=== PATIENT | female | born 1980 | race Hispanic/Latino ===

== ENCOUNTER 2017-05-04 23:25 | Emergency (ER) | payer SELFPAY ==
[2017-05-05] MEDS ORDERED: DEXAMETHASONE SOD PHOSPHATE 10MG/ML 1ML VIAL ONE (00:22)
== END 2017-05-05 00:41 | disposition home or self-care (01) ==
LOC: EDH 23:25
DX: M72.2 Plantar fascial fibromatosis (principal)
CPT/HCPCS: 96372; 99283; J1100

== ENCOUNTER 2017-05-21 20:18 | Emergency (ER) | payer SELFPAY ==
[2017-05-21 20:34] LABS: APPEARANCE,URINE Cloudy (CLEAR); BILIRUBIN,URINE Negative (NEGATIVE); COLOR,URINE Yellow (YELLOW); GLUCOSE, URINE (UA) Negative (NEGATIVE); KETONES,URINE Negative (NEGATIVE); LEUKOCYTE ESTERASE ,URINE Negative (NEGATIVE); NITRATE,URINE Negative (NEGATIVE); OCCULT BLOOD,URINE Negative (NEGATIVE); PH,URINE >=9.0 (5.0-8.0); PROTEIN,URINE Negative (NEGATIVE); UROBILINOGEN,URINE 0.2 mg/dL (0.2-1.0)
[2017-05-21 21:00] LABS: BASOPHILS % (AUTO) 0.6 % (0.0-5.0); EOSINOPHILS % (AUTO) 0.7 % (0.0-8.0); HEMATOCRIT 37.9 % (36-48); MEAN CORPUSCULAR HEMOGLOBIN 31.8 pg (27.0-33.0); MEAN CORPUSCULAR HGB CONC 34.9 g/dL (32.0-36.0); MEAN CORPUSCULAR VOLUME 90.9 fL (79-99); MONOCYTES % (AUTO) 6.2 % (3.0-13.0); NEUTROPHILS % (AUTO) 73.5 % (40.0-77.0); NUCLEATED RED BLOOD CELLS 0.1 % (0.0-0.19); PLATELET COUNT (AUTO) 230 K/uL (130-400); RED BLOOD CELL COUNT(AUTO) 4.17 MIL/uL (4.00-5.50); RED CELL DISTRIBUTION WIDTH 13.1 % (11.0-15.5); WHITE BLOOD COUNT (AUTO) 12.5 K/uL (4.8-10.8)
[2017-05-21] MEDS ORDERED: KETOROLAC TROMETHAMINE 30MG/ML ONE (21:02)
[2017-05-21 21:10] LABS: POTASSIUM 4.1 mmol/L (3.5-5.1)
[2017-05-21 21:15] LABS: ALBUMIN 3.2 g/dL (3.5-5.0); BILIRUBIN,TOTAL 0.8 mg/dL (0.2-1.0); TOTAL PROTEIN, SERUM 6.9 g/dL (6.0-8.3)
[2017-05-21 21:38] LABS: AMORPHOUS SEDIMENT,UR Moderate /LPF (None Seen); BACTERIA,URINE Few /HPF (None Seen); RBC,URINE 0-1 /HPF (0-1); SQUAMOUS EPITHELIAL CELL,UR Few /LPF (0-2); WBC,URINE 0-1 /HPF (0-1)
[2017-05-21] MEDS ORDERED: LEVOFLOXACIN 500 MG TABLET ONE (22:37)
[2017-05-21] MEDS ORDERED: METRONIDAZOLE 500 MG TABLET ONE (22:37)
== END 2017-05-21 23:04 | disposition home or self-care (01) ==
LOC: EDH 20:18
DX: K57.32 Diverticulitis of large intestine without perforation or abscess without bleeding (principal)
CPT/HCPCS: 36415; 74176; 80053; 81001; 81025; 85025; 96372; 99285; J1885

== ENCOUNTER 2017-06-27 18:11 | Emergency (ER) | payer SELFPAY ==
[2017-06-27 18:43] LABS: BASOPHILS % (AUTO) 0.6 % (0.0-5.0); EOSINOPHILS % (AUTO) 1.7 % (0.0-8.0); HEMATOCRIT 46.1 % (36-48); LYMPHOCYTES % (AUTO) 24.1 % (21.0-51.0); MEAN CORPUSCULAR HEMOGLOBIN 30.7 pg (27.0-33.0); MEAN CORPUSCULAR HGB CONC 33.8 g/dL (32.0-36.0); MEAN CORPUSCULAR VOLUME 90.7 fL (79-99); MONOCYTES % (AUTO) 5.1 % (3.0-13.0); NEUTROPHILS % (AUTO) 68.5 % (40.0-77.0); PLATELET COUNT (AUTO) 267 K/uL (130-400); RED BLOOD CELL COUNT(AUTO) 5.08 MIL/uL (4.00-5.50)
[2017-06-27] MEDS ORDERED: ASPIRIN 325 MG TABLET ONE (18:44)
[2017-06-27 19:00] LABS: CREATININE 0.9 mg/dL (0.5-1.5); POTASSIUM 3.6 mmol/L (3.5-5.1)
[2017-06-27] MEDS ORDERED: DIPHENHYDRAMINE HCL 25 MG CAPSULE ONE (19:09)
[2017-06-27 19:15] LABS: BILIRUBIN,TOTAL 0.4 mg/dL (0.2-1.0); CREATINE KINASE MB 0.6 ng/mL (0.5-3.6); TOTAL PROTEIN, SERUM 6.3 g/dL (6.0-8.3)
[2017-06-27 19:32] LABS: INR 0.94 (0.85-1.15); PARTIAL THROMBOPLASTIN TIME 26.6 SEC (26.3-35.5); PROTHROMBIN TIME 9.9 SEC (9.6-11.6)
== END 2017-06-27 21:51 | disposition home or self-care (01) ==
LOC: EDH 18:11
DX: F41.1 Generalized anxiety disorder (principal); F45.8 Other somatoform disorders; R07.89 Other chest pain
CPT/HCPCS: 36415; 71045; 80053; 82550; 82553; 83874; 83880; 84484 ×2; 84703; 85025; 85610; 85730; 93005 ×2; 96374; 99285; Q0163

== ENCOUNTER 2018-02-10 18:41 | Emergency (ER) | payer OTHER ==
[2018-02-10] MEDS ORDERED: ASPIRIN 325 MG TABLET ONE (19:36)
[2018-02-10 19:37] LABS: BASOPHILS % (AUTO) 0.7 % (0.0-5.0); EOSINOPHILS % (AUTO) 1.8 % (0.0-8.0); HEMATOCRIT 37.3 % (36-48); LYMPHOCYTES % (AUTO) 33.5 % (21.0-51.0); MEAN CORPUSCULAR HEMOGLOBIN 30.8 pg (27.0-33.0); MEAN CORPUSCULAR VOLUME 90.5 fL (79-99); MONOCYTES % (AUTO) 7.6 % (3.0-13.0); NEUTROPHILS % (AUTO) 56.4 % (40.0-77.0); PLATELET COUNT (AUTO) 222 K/uL (130-400); RED BLOOD CELL COUNT(AUTO) 4.12 MIL/uL (4.00-5.50); WHITE BLOOD COUNT (AUTO) 8.6 K/uL (4.8-10.8)
[2018-02-10 19:49] LABS: INR 0.97 (0.85-1.15); PARTIAL THROMBOPLASTIN TIME 29.6 SEC (26.3-35.5); PROTHROMBIN TIME 10.2 SEC (9.6-11.6)
[2018-02-10 19:59] LABS: ALBUMIN 3.3 g/dL (3.5-5.0); BILIRUBIN,TOTAL 0.4 mg/dL (0.2-1.0); TOTAL PROTEIN, SERUM 7.2 g/dL (6.0-8.3)
== END 2018-02-10 20:46 | disposition home or self-care (01) ==
LOC: EDH 18:41
DX: R07.89 Other chest pain (principal); R06.02 Shortness of breath; K29.70 Gastritis, unspecified, without bleeding; Z90.49 Acquired absence of other specified parts of digestive tract; Z90.710 Acquired absence of both cervix and uterus; Z98.890 Other specified postprocedural states
CPT/HCPCS: 36415; 71045; 80053; 81025; 82550; 83874; 84484; 85025; 85378; 85610; 85730; 93005; 94761

== ENCOUNTER 2018-09-15 19:28 | Inpatient (IN) | payer SELFPAY ==
[~2018-09-15] VITALS: Ht 167.6 cm; Wt 114.3 kg
[2018-09-15 19:58] LABS: BILIRUBIN,URINE Negative (NEGATIVE); COLOR,URINE Yellow (YELLOW); GLUCOSE, URINE (UA) Negative (NEGATIVE); KETONES,URINE Negative (NEGATIVE); LEUKOCYTE ESTERASE ,URINE Negative (NEGATIVE); NITRATE,URINE Negative (NEGATIVE); OCCULT BLOOD,URINE Large (NEGATIVE); PH,URINE 5.5 (5.0-8.0); PROTEIN,URINE Trace mg/dL (NEGATIVE)
[2018-09-15 20:00] LABS: APPEARANCE,URINE SLIGHTLY CLOUDY (CLEAR)
[2018-09-15 20:08] LABS: BASOPHILS % (AUTO) 0.4 % (0.0-5.0); EOSINOPHILS % (AUTO) 0.9 % (0.0-8.0); HEMATOCRIT 38.8 % (36-48); LYMPHOCYTES % (AUTO) 30.3 % (21.0-51.0); MEAN CORPUSCULAR HGB CONC 34.4 g/dL (32.0-36.0); MEAN CORPUSCULAR VOLUME 90.2 fL (79-99); MONOCYTES % (AUTO) 6.5 % (3.0-13.0); NEUTROPHILS % (AUTO) 61.9 % (40.0-77.0); PLATELET COUNT (AUTO) 211 K/uL (130-400); RED CELL DISTRIBUTION WIDTH 13.1 % (11.0-15.5); WHITE BLOOD COUNT (AUTO) 11.7 K/uL (4.8-10.8)
[2018-09-15] MEDS ORDERED: MORPHINE SULFATE 2 MG/ML 1ML SYG ONE (20:12)
[2018-09-15] MEDS ORDERED: ONDANSETRON HCL 4 MG/2 ML VIAL ONE (20:12)
[2018-09-15 20:13] LABS: BACTERIA,URINE Few /HPF (None Seen)
[2018-09-15 20:14] LABS: MUCUS,URINE Few LPF (None Seen); SQUAMOUS EPITHELIAL CELL,UR Moderate /HPF (0-2)
[2018-09-15 20:19] LABS: POTASSIUM 3.4 mmol/L (3.5-5.1)
[2018-09-15 20:24] LABS: ALBUMIN 3.5 g/dL (3.5-5.0); BILIRUBIN,TOTAL 0.4 mg/dL (0.2-1.0); TOTAL PROTEIN, SERUM 7.5 g/dL (6.0-8.3)
[2018-09-15] MEDS ORDERED: KETOROLAC TROMETHAMINE 30MG/ML ONE (20:28)
[2018-09-15] MEDS ORDERED: LEVOFLOXACIN 500 MG/D5W 100 ML 100 ML ONE (21:31)
[2018-09-15] MEDS ORDERED: METRONIDAZOLE 500MG/100ML BAG 100 ML ONE (21:31)
[2018-09-15] MEDS ORDERED: MORPHINE SULFATE 4 MG/1ML SYG ONE (21:33)
[2018-09-15] MEDS ORDERED: DIAZEPAM 5 MG TABLET ONE (23:06)
[2018-09-15] MEDS ORDERED: HYDROCODONE/ACETAMINOPHEN 5/325 MG TAB PO PRN (23:30)
[2018-09-15] MEDS ORDERED: DIAZEPAM 5 MG TABLET PO PRN (23:30)
[2018-09-15] MEDS ORDERED: ACETAMINOPHEN 325 MG TAB PO PRN ×2 (23:30)
[2018-09-15] MEDS ORDERED: ONDANSETRON HCL 4 MG/2 ML VIAL IV PRN (23:30)
[2018-09-15 23:54] VITALS: BP 126/65
[2018-09-16 03:47] VITALS: BP 124/60
[2018-09-16] MEDS: SODIUM CHLORIDE 0.9% 1000ML 1,000 ML IV SCH ×4 (05:56→20:35)
[2018-09-16 08:00] VITALS: BP 111/71
[2018-09-16] MEDS ORDERED: POTASSIUM CHLORIDE 20 MEQ ERTAB PO PRN (09:15)
[2018-09-16] MEDS ORDERED: LIDOCAINE HCL-MPF 1% 2ML VIAL IVP PRN (09:15)
[2018-09-16] MEDS ORDERED: POTASSIUM CHLORIDE 10% ELIXIR 20 MEQ/15 ML UDCUP PO PRN (09:15)
[2018-09-16] MEDS ORDERED: POTASSIUM CHLORIDE 10MEQ/100ML 100 ML IV PRN (09:15)
[2018-09-16 09:57] LABS: BASOPHILS % (AUTO) 0.1 % (0.0-5.0); HEMATOCRIT 36.8 % (36-48); LYMPHOCYTES % (AUTO) 28.2 % (21.0-51.0); MEAN CORPUSCULAR HEMOGLOBIN 30.1 pg (27.0-33.0); MEAN CORPUSCULAR HGB CONC 33.2 g/dL (32.0-36.0); MEAN CORPUSCULAR VOLUME 90.5 fL (79-99); MONOCYTES % (AUTO) 5.5 % (3.0-13.0); NEUTROPHILS % (AUTO) 65.2 % (40.0-77.0); PLATELET COUNT (AUTO) 191 K/uL (130-400); RED BLOOD CELL COUNT(AUTO) 4.06 MIL/uL (4.00-5.50); WHITE BLOOD COUNT (AUTO) 7.5 K/uL (4.8-10.8)
[2018-09-16 10:06] LABS: POTASSIUM 4.2 mmol/L (3.5-5.1)
[2018-09-16] MEDS: FAMOTIDINE/PF 20 MG/2 ML VIAL IV SCH ×2 (10:18→20:34)
--- NOTE | 2018-09-16 10:18 | NUR ---
Yessica Clements met with pt who states she lives alone. father [place] [address] [phone]. Pt works at [employer], is independent, no DME or services. Pt denies dc needs and plan is home at dc Addendum: 09/16/18 at 1020 by CECILY WONG Amended: Links added.
[2018-09-16] MEDS: ENOXAPARIN SODIUM 40 MG/0.4 ML SYRINGE SQ SCH ×2 (10:19→20:34)
[2018-09-16 12:00] VITALS: BP 133/70
[2018-09-16] MEDS: ZOSYN 3.375GM+NS 50ML 50 ML IV SCH ×2 (12:27→20:34)
--- NOTE | 2018-09-16 15:47 | NUR ---
RD Notification Pt NPO x1 day at time of screen/visit. Pt with reports of hunger; Rec to advance diet as tolerated to Soft diet. Diet currently advanced to Full Liquids. Pt dislike Ensure. Pt LBM 09/15/18. Pt monitored labs: Glu 106, Ca 8.4, Alb 3.5. RD provided Diverticulitis diet education. RD to continue to monitor. Please notify RD as additional nutrition concerns arise. Thank you. Addendum: 09/16/18 at [address] RD Amended: Links added.
--- NOTE | 2018-09-16 15:53 | NUR ---
Diet Education ROBERTH provided Diverticulitis Diet Education. ROBERTH reviewed reference materials and handouts with Pt. Pt verbalized understanding, denied need for education, however still receptive to educational materials. ROBERTH discussed problematic foods with Pt. Pt to modify diet as necessary. ROBERTH encouraged Pt to notify as questions and concerns arise. Addendum: 09/16/18 at [address] RD Amended: Links added.
[2018-09-16 16:00] VITALS: BP 103/49
[2018-09-16 19:52] VITALS: BP 103/49
[2018-09-16 23:43] VITALS: BP 124/65
[2018-09-17] MEDS: ZOSYN 3.375GM+NS 50ML 50 ML IV SCH ×2 (05:00→12:30)
[2018-09-17 07:00] VITALS: BP 116/54
[2018-09-17] MEDS: SODIUM CHLORIDE 0.9% 1000ML 1,000 ML IV SCH (07:45)
[2018-09-17] MEDS ORDERED: METR-172 PO (09:02)
[2018-09-17] MEDS ORDERED: LEVO500T2 PO (09:02)
[2018-09-17] MEDS: FAMOTIDINE/PF 20 MG/2 ML VIAL IV SCH (09:44)
[2018-09-17] MEDS: ENOXAPARIN SODIUM 40 MG/0.4 ML SYRINGE SQ SCH (09:44)
[2018-09-17 11:00] VITALS: BP 99/51
== END 2018-09-17 15:21 | disposition home or self-care (01) | DRG 392 ==
LOC: EDH 19:28 → EDHIP 19:29 → 3BH 23:39
PROVIDERS: ADMIT Internal Medicine; ATTEND Internal Medicine
DX: K57.32 Diverticulitis of large intestine without perforation or abscess without bleeding (principal); Z68.41 Body mass index [BMI] 40.0-44.9, adult; E66.01 Morbid (severe) obesity due to excess calories; E87.6 Hypokalemia; K42.9 Umbilical hernia without obstruction or gangrene; K76.0 Fatty (change of) liver, not elsewhere classified; F41.9 Anxiety disorder, unspecified; Z90.710 Acquired absence of both cervix and uterus
CPT/HCPCS: 36415; 74176; 76770; 80048; 80053; 81001; 81025; 83690; 85025; G0378; J1650; J1885; J1956; J2270; J2405; J2543; J3490; J7030

== ENCOUNTER 2019-05-18 02:59 | Emergency (ER) | payer OTHER ==
[~2019-05-18 02:59] MED LIST: LEVO500T2 PO; METR-172 PO
[2019-05-18] MEDS ORDERED: ONDANSETRON HCL 4 MG/2 ML VIAL ONE (03:36)
[2019-05-18] MEDS ORDERED: MORPHINE SULFATE 4 MG/1ML SYG ONE (03:37)
[2019-05-18 03:39] LABS: BASOPHILS % (AUTO) 0.4 % (0.0-5.0); EOSINOPHILS % (AUTO) 1.5 % (0.0-8.0); HEMATOCRIT 42.3 % (36-48); LYMPHOCYTES % (AUTO) 14.9 % (21.0-51.0); MEAN CORPUSCULAR HEMOGLOBIN 30.5 pg (27.0-33.0); MEAN CORPUSCULAR HGB CONC 33.8 g/dL (32.0-36.0); MEAN CORPUSCULAR VOLUME 90.2 fL (79-99); MONOCYTES % (AUTO) 6.4 % (3.0-13.0); NEUTROPHILS % (AUTO) 76.5 % (40.0-77.0); PLATELET COUNT (AUTO) 238 K/uL (130-400); RED BLOOD CELL COUNT(AUTO) 4.69 MIL/uL (4.00-5.50); RED CELL DISTRIBUTION WIDTH 12.8 % (11.0-15.5); WHITE BLOOD COUNT (AUTO) 11.5 K/uL (4.8-10.8)
[2019-05-18 03:50] LABS: CREATININE 0.9 mg/dL (0.5-1.5); POTASSIUM 3.7 mmol/L (3.5-5.1)
[2019-05-18 03:50] LABS: APPEARANCE,URINE Clear (CLEAR); BILIRUBIN,URINE Negative (NEGATIVE); COLOR,URINE Yellow (YELLOW); GLUCOSE, URINE (UA) Negative (NEGATIVE); KETONES,URINE Negative (NEGATIVE); LEUKOCYTE ESTERASE ,URINE Small (NEGATIVE); NITRATE,URINE Negative (NEGATIVE); OCCULT BLOOD,URINE Negative (NEGATIVE); PH,URINE 8.5 (5.0-8.0); PROTEIN,URINE Negative (NEGATIVE)
[2019-05-18 03:54] LABS: ALBUMIN 3.3 g/dL (3.5-5.0); BILIRUBIN,TOTAL 0.7 mg/dL (0.2-1.0); TOTAL PROTEIN, SERUM 7.3 g/dL (6.0-8.3)
[2019-05-18 03:55] LABS: HCG,QUAL RESULT NEGATIVE (NEGATIVE)
[2019-05-18 04:30] LABS: BACTERIA,URINE Few /HPF (None Seen); RBC,URINE None Seen /HPF (0-1); SQUAMOUS EPITHELIAL CELL,UR Moderate /HPF (0-2)
== END 2019-05-18 05:48 | disposition home or self-care (01) ==
LOC: EDH 02:59
DX: A08.4 Viral intestinal infection, unspecified (principal); F41.9 Anxiety disorder, unspecified; Z91.018 Allergy to other foods
CPT/HCPCS: 36415; 74176; 80053; 81001; 81025; 82150; 83690; 84484; 85025; 93005; 96374; 96375; 99285; J2270; J2405

== ENCOUNTER 2021-12-24 18:33 | Emergency (ER) | payer OTHER ==
[~2021-12-24] VITALS: Ht 167.6 cm; Wt 113.4 kg
[2021-12-24] MEDS ORDERED: DIPH25 PO (19:21)
[2021-12-24] MEDS ORDERED: HYDR28.32 TP (19:21)
[2021-12-24] MEDS ORDERED: DiphenhydrAMINE HCL 50 MG/ML VIAL IM ONE (19:30)
[2021-12-24] MEDS ORDERED: DEXAMETHASONE SOD PHOSPHATE 4 MG/ML 1ML VIAL IM ONE (19:30)
[2021-12-24 20:27] VITALS: BP 141/73
== END 2021-12-24 20:35 | disposition home or self-care (01) ==
LOC: EDH 18:33
DX: L25.9 Unspecified contact dermatitis, unspecified cause (principal); Z79.52 Long term (current) use of systemic steroids; Z90.49 Acquired absence of other specified parts of digestive tract
CPT/HCPCS: 99284; 96372 ×2; J1100; J1200

== ENCOUNTER 2022-01-24 09:10 | Emergency (ER) | payer OTHER ==
[~2022-01-24] VITALS: Ht 167.6 cm; Wt 98.0 kg
[~2022-01-24 09:10] MED LIST changes: +DIPH25 PO; +HYDR28.32 TP
[2022-01-24 10:40] LABS: ALBUMIN 3.4 g/dL (3.5-5.0); CREATININE 0.9 mg/dL (0.5-1.5); POTASSIUM 3.9 mmol/L (3.5-5.1); TOTAL PROTEIN, SERUM 7.6 g/dL (6.0-8.3)
[2022-01-24 10:44] LABS: BASOPHILS % (AUTO) 0.8 % (0.0-5.0); HEMATOCRIT 40.8 % (36-48); MEAN CORPUSCULAR HEMOGLOBIN 29.6 pg (27.0-33.0); MEAN CORPUSCULAR HGB CONC 32.8 g/dL (32.0-36.0); MEAN CORPUSCULAR VOLUME 90.3 fL (79-99); NEUTROPHILS % (AUTO) 65.1 % (40.0-77.0); PLATELET COUNT (AUTO) 242 K/uL (130-400); RED BLOOD CELL COUNT(AUTO) 4.52 MIL/uL (4.00-5.50); RED CELL DISTRIBUTION WIDTH 12.6 % (11.0-15.5); WHITE BLOOD COUNT (AUTO) 8.3 K/uL (4.8-10.8)
[2022-01-24] MEDS ORDERED: MORPHINE 2 MG SYG ONE (11:35)
[2022-01-24 11:41] LABS: APPEARANCE,URINE CLEAR (CLEAR); BILIRUBIN,URINE NEGATIVE (NEGATIVE); COLOR,URINE YELLOW (YELLOW); GLUCOSE, URINE (UA) NEGATIVE (NEGATIVE); KETONES,URINE NEGATIVE (NEGATIVE); LEUKOCYTE ESTERASE ,URINE NEGATIVE Leu/uL (NEGATIVE); NITRATE,URINE NEGATIVE (NEGATIVE); OCCULT BLOOD,URINE NEGATIVE (NEGATIVE); PH,URINE 6.5 (5.0-8.0); PROTEIN,URINE NEGATIVE (NEGATIVE); UROBILINOGEN,URINE 0.2 mg/dL (0.2-1.0)
[2022-01-24] MEDS ORDERED: MORPHINE 2 MG SYG IVP SCH (12:00)
[2022-01-24] MEDS ORDERED: ASPIRIN 81MG CHEW TAB PO SCH (13:00)
[2022-01-24] MEDS ORDERED: OMEP20TA2 PO (14:20)
[2022-01-24] MEDS ORDERED: IBUP-1493 PO (14:20)
[2022-01-24 15:39] VITALS: BP 129/63
== END 2022-01-24 15:50 | disposition home or self-care (01) ==
LOC: EDH 09:10
DX: R07.89 Other chest pain (principal); Z90.49 Acquired absence of other specified parts of digestive tract; Z98.890 Other specified postprocedural states; Z79.899 Other long term (current) drug therapy; Z91.018 Allergy to other foods
CPT/HCPCS: 36415; 71045; 80053; 81003; 83880; 84484; 85025; 85378; 93005; 96374

== ENCOUNTER 2022-04-30 05:53 | Emergency (ER) | payer SELFPAY ==
[~2022-04-30] VITALS: Ht 167.6 cm; Wt 120.2 kg
[~2022-04-30 05:53] MED LIST changes: +DIPH-1242 PO; -DIPH25 PO; +IBUP-1493 PO; +OMEP20TA2 PO
[2022-04-30] MEDS ORDERED: LACTATED RINGERS 1000ML 1,000 ML IV ONE (06:30)
[2022-04-30 06:34] LABS: BASOPHILS % (AUTO) 0.3 % (0.0-5.0); EOSINOPHILS % (AUTO) 1.9 % (0.0-8.0); HEMATOCRIT 41.7 % (36-48); LYMPHOCYTES % (AUTO) 14.8 % (21.0-51.0); MEAN CORPUSCULAR HEMOGLOBIN 29.7 pg (27.0-33.0); MEAN CORPUSCULAR HGB CONC 33.1 g/dL (32.0-36.0); MEAN CORPUSCULAR VOLUME 89.7 fL (79-99); MONOCYTES % (AUTO) 6.9 % (3.0-13.0); NEUTROPHILS % (AUTO) 75.7 % (40.0-77.0); PLATELET COUNT (AUTO) 204 K/uL (130-400); RED BLOOD CELL COUNT(AUTO) 4.65 MIL/uL (4.00-5.50); RED CELL DISTRIBUTION WIDTH 13.4 % (11.0-15.5); WHITE BLOOD COUNT (AUTO) 9.2 K/uL (4.8-10.8)
[2022-04-30 06:46] LABS: ALBUMIN 3.2 g/dL (3.5-5.0); CREATININE 0.9 mg/dL (0.5-1.5); POTASSIUM 3.6 mmol/L (3.5-5.1); TOTAL PROTEIN, SERUM 7.6 g/dL (6.0-8.3)
[2022-04-30 06:48] LABS: INR 0.96 (0.85-1.15); PARTIAL THROMBOPLASTIN TIME 29.5 SEC (26.3-35.5); PROTHROMBIN TIME 10.5 SEC (9.6-11.6)
[2022-04-30] MEDS ORDERED: IOHEXOL 350 MG/ML 100ML INFUS..BTL IV ONE (06:54)
[2022-04-30 08:22] VITALS: BP 124/70
[2022-04-30 08:35] LABS: APPEARANCE,URINE CLEAR (CLEAR); BILIRUBIN,URINE NEGATIVE (NEGATIVE); COLOR,URINE LIGHT-YELLOW (YELLOW); GLUCOSE, URINE (UA) NEGATIVE (NEGATIVE); KETONES,URINE NEGATIVE (NEGATIVE); LEUKOCYTE ESTERASE ,URINE NEGATIVE Leu/uL (NEGATIVE); NITRATE,URINE NEGATIVE (NEGATIVE); OCCULT BLOOD,URINE NEGATIVE (NEGATIVE); PH,URINE 5.5 (5.0-8.0); PROTEIN,URINE NEGATIVE (NEGATIVE); UROBILINOGEN,URINE 0.2 mg/dL (0.2-1.0)
[2022-04-30] MEDS ORDERED: ONDA4TAB10 PO (09:31)
[2022-04-30] MEDS ORDERED: LOPE2 PO (09:31)
== END 2022-04-30 10:04 | disposition home or self-care (01) ==
LOC: EDH 05:53
DX: K52.9 Noninfective gastroenteritis and colitis, unspecified (principal); Z90.49 Acquired absence of other specified parts of digestive tract; Z90.710 Acquired absence of both cervix and uterus; Z79.1 Long term (current) use of non-steroidal anti-inflammatories (NSAID); Z79.2 Long term (current) use of antibiotics; Z79.899 Other long term (current) drug therapy
CPT/HCPCS: 99285; 74177; 96360; 82270; 82150; 84484; 80053; 83690; 85025; 85610; 85730; 82948; 81003; 36415; Q9967

== ENCOUNTER 2022-05-08 02:57 | Emergency (ER) | payer SELFPAY ==
[~2022-05-08] VITALS: Ht 167.6 cm; Wt 116.1 kg
[~2022-05-08 02:57] MED LIST changes: +LOPE2 PO; +ONDA4TAB10 PO
[2022-05-08] MEDS ORDERED: ONDANSETRON 4MG INJ ONE (03:03)
[2022-05-08] MEDS ORDERED: ONDANSETRON 4MG INJ IVP ONE (03:30)
[2022-05-08 03:32] LABS: BASOPHILS % (AUTO) 0.5 % (0.0-5.0); EOSINOPHILS % (AUTO) 1.8 % (0.0-8.0); HEMATOCRIT 39.3 % (36-48); LYMPHOCYTES % (AUTO) 18.9 % (21.0-51.0); MEAN CORPUSCULAR HEMOGLOBIN 29.9 pg (27.0-33.0); MEAN CORPUSCULAR HGB CONC 33.3 g/dL (32.0-36.0); MEAN CORPUSCULAR VOLUME 89.7 fL (79-99); MONOCYTES % (AUTO) 5.3 % (3.0-13.0); PLATELET COUNT (AUTO) 268 K/uL (130-400); RED BLOOD CELL COUNT(AUTO) 4.38 MIL/uL (4.00-5.50); RED CELL DISTRIBUTION WIDTH 13.3 % (11.0-15.5); WHITE BLOOD COUNT (AUTO) 9.7 K/uL (4.8-10.8)
[2022-05-08 03:34] LABS: CREATININE 0.9 mg/dL (0.5-1.5); POTASSIUM 3.2 mmol/L (3.5-5.1)
[2022-05-08 03:40] LABS: ALBUMIN 3.2 g/dL (3.5-5.0); MAGNESIUM 1.8 mg/dL (1.80-2.40); TOTAL PROTEIN, SERUM 7.2 g/dL (6.0-8.3)
[2022-05-08] MEDS ORDERED: KETOROLAC 30MG VIAL (30MG/ML) ONE (03:42)
[2022-05-08] MEDS ORDERED: NITROGLYCERIN 0.4 MG SL TAB SL ONE (03:43)
[2022-05-08] MEDS ORDERED: KETOROLAC 30MG VIAL (30MG/ML) IVP ONE (04:00)
[2022-05-08] MEDS ORDERED: NITROGLYCERIN 0.4 MG SL TAB SL PRN (04:00)
[2022-05-08 05:13] VITALS: BP 115/53
[2022-05-08] MEDS ORDERED: PANTOPRAZOLE 40 MG/VIAL IVP ONE ×2 (08:15→08:30)
[2022-05-08] MEDS ORDERED: LIDOCAINE HCL 2% VISCOUS 15 ML UDCUP PO ONE ×2 (08:15→08:30)
[2022-05-08] MEDS ORDERED: MAG/ALUM/SIMETH 30 ML UDCUP PO ONE ×2 (08:15→08:30)
== END 2022-05-08 09:50 | disposition left against medical advice (07) ==
LOC: EDH 02:57
DX: K52.9 Noninfective gastroenteritis and colitis, unspecified (principal); L25.9 Unspecified contact dermatitis, unspecified cause; Z90.49 Acquired absence of other specified parts of digestive tract; Z79.899 Other long term (current) drug therapy
CPT/HCPCS: 99285; 96374; 71045; 96375 ×2; 83735; 84484 ×2; 80053; 85025; 85378; 36415; 93005; J2405; J1885; C9113

== ENCOUNTER 2023-01-29 16:46 | Emergency (ER) | payer BC ==
[~2023-01-29] VITALS: Ht 167.6 cm; Wt 121.6 kg
[2023-01-29 16:51] VITALS: BP 151/89; PULSE 75; RESP 16; O2SAT 96
== END 2023-01-29 18:22 | disposition left against medical advice (07) ==
LOC: EDH 16:46
DX: N93.9 Abnormal uterine and vaginal bleeding, unspecified (principal); Z53.21 Procedure and treatment not carried out due to patient leaving prior to being seen by health care provider

== ENCOUNTER 2023-08-13 13:53 | Emergency (ER) | payer BC, OTHER ==
[~2023-08-13] VITALS: Ht 165.1 cm; Wt 127.0 kg
[2023-08-13 14:58] LABS: BASOPHILS # (AUTO) 0.05 K/uL (0.00-0.20); BASOPHILS % (AUTO) 0.6 % (0.0-5.0); EOSINOPHILS # (AUTO) 0.13 K/uL (0.00-0.70); EOSINOPHILS % (AUTO) 1.5 % (0.0-8.0); HEMATOCRIT 37.6 % (36-48); IMMATURE GRANULOCYTE ABSOLUTE 0.02 K/uL (0-1); LYMPHOCYTES # (AUTO) 1.8 K/uL (1.0-4.8); LYMPHOCYTES % (AUTO) 20.6 % (21.0-51.0); MEAN CORPUSCULAR HEMOGLOBIN 29.4 pg (27.0-33.0); MEAN CORPUSCULAR HGB CONC 33.5 g/dL (32.0-36.0); MEAN CORPUSCULAR VOLUME 87.9 fL (79-99); MONOCYTES # (AUTO) 0.5 K/uL (0.1-1.0); MONOCYTES % (AUTO) 5.7 % (3.0-13.0); NEUTROPHILS # (AUTO) 6.2 K/uL (1.8-7.7); NEUTROPHILS % (AUTO) 71.4 % (40.0-77.0); PLATELET COUNT (AUTO) 259 K/uL (130-400); RED BLOOD CELL COUNT(AUTO) 4.28 MIL/uL (4.00-5.50); RED CELL DISTRIBUTION WIDTH 13.1 % (11.0-15.5); WHITE BLOOD COUNT (AUTO) 8.7 K/uL (4.8-10.8)
[2023-08-13 15:00] LABS: APPEARANCE,URINE CLOUDY (CLEAR); BILIRUBIN,URINE NEGATIVE (NEGATIVE); COLOR,URINE YELLOW (YELLOW); GLUCOSE, URINE (UA) NEGATIVE (NEGATIVE); KETONES,URINE NEGATIVE (NEGATIVE); LEUKOCYTE ESTERASE ,URINE NEGATIVE Leu/uL (NEGATIVE); NITRATE,URINE NEGATIVE (NEGATIVE); OCCULT BLOOD,URINE NEGATIVE (NEGATIVE); PH,URINE 7.5 (5.0-8.0); PROTEIN,URINE 10 mg/dL (NEGATIVE); UROBILINOGEN,URINE 0.2 mg/dL (0.2-1.0)
[2023-08-13 15:10] LABS: CREATININE 1.1 mg/dL (0.5-1.0); POTASSIUM 3.5 mmol/L (3.5-5.1)
[2023-08-13 15:11] LABS: ADD UA MICROSCOPIC YES
[2023-08-13 15:14] LABS: ALBUMIN 3.1 g/dL (3.5-5.0); BILIRUBIN,TOTAL 0.5 mg/dL (0.2-1.0); TOTAL PROTEIN, SERUM 7.6 g/dL (6.0-8.3)
[2023-08-13 15:20] LABS: INFLUENZA TYPE A NEGATIVE FOR TYPE A (NEG); INFLUENZA TYPE B NEGATIVE FOR TYPE B (NEG)
[2023-08-13 15:21] LABS: SARS-CoV-2, RNA, NAAT NEGATIVE SARS CoV-2 (NEGATIVE)
[2023-08-13 15:23] LABS: BACTERIA,URINE Few /HPF (None Seen); RBC,URINE None Seen /HPF (0-1)
[2023-08-13 15:35] LABS: RAPID GROUP A STREP negative (NEGATIVE)
[2023-08-13 16:12] VITALS: BP 134/49; PULSE 87; RESP 17; O2SAT 100
== END 2023-08-13 16:00 | disposition home or self-care (01) ==
LOC: EDH 13:53
DX: R55 Syncope and collapse (principal); Z79.1 Long term (current) use of non-steroidal anti-inflammatories (NSAID); Z79.899 Other long term (current) drug therapy; Z90.49 Acquired absence of other specified parts of digestive tract; Z90.710 Acquired absence of both cervix and uterus; Z20.822 Contact with and (suspected) exposure to COVID-19
CPT/HCPCS: 36415; 80053; 81001; 83690; 85025; 87635; 87804; 87880

== ENCOUNTER 2025-02-22 22:03 | Emergency (ER) | payer SELFPAY ==
[~2025-02-22] VITALS: Ht 167.6 cm; Wt 127.0 kg
[~2025-02-22 22:03] MED LIST changes: +ONDA-243 PO; -ONDA4TAB10 PO
--- NOTE | 2025-02-22 22:17 | ERN ---
General Chief Complaint: Abdominal Pain Stated Complaint: LUQ ABDOMINAL PAIN Time Seen by MD: 22:06 Source: patient History of Present Illness Initial Comments A 44-year-old morbidly obese female with a history of colon cancer that has been treated with radiation. Patient only mentions radiation therapy. She said she did not have surgery for her colon cancer. She comes in with the acute onset of left upper quadrant pain that is periodic with a frequency of only a few minutes. She does have nausea no vomiting. No flatus. Allergies: Coded Allergies: No Known Allergies (Unverified Allergy, Unknown, 09/16/18) onion (Unverified Allergy, Unknown, 05/18/19) Home Meds Active Scripts Ondansetron (Ondansetron Odt) 4 Mg Tab.rapdis, 4 MG PO Q6HPRN PRN for nausea, #12 TAB 0 Refills Prov:OLI KWOK MD 12/31/22 Loperamide HCl (Imodium) 2 Mg Cap, 2 MG PO TID PRN for DIARRHEA, #15 CAP 0 Refills Prov:OLIVIA BRICEÑO MD 04/30/22 Ondansetron (Ondansetron Odt) 4 Mg Tab.rapdis, 4 MG PO TID PRN for NAUSEA, #15 TAB 0 Refills Prov:OLIVIA BRICEÑO MD 04/30/22 Omeprazole Magnesium (Prilosec Otc) 20 Mg Tablet.dr, 20 MG PO DAILY, #30 TAB Prov:JACQUIE COLIN MD 01/24/22 Ibuprofen (Motrin/Advil) 800 Mg Tab, 800 MG PO TID, #30 TAB Prov:JACQUIE COLIN MD 01/24/22 Diphenhydramine HCl (Benadryl) 25 Mg Cap, 25 MG PO TID PRN for itching, #30 CAP Prov:JACQUIE COLIN MD 12/24/21 Hydrocortisone (Hydrocortisone 1% 28.35GM) 28.35 Gm Crm, 28.35 GM TP TID PRN for itching, #60 APPL Prov:JACQUIE COLIN MD 12/24/21 Levofloxacin (Levaquin) 500 Mg Tablet, 500 MG PO DAILY for 5 Days, #5 TAB 0 Refills Prov:ELVIA GOULD 09/17/18 Metronidazole (Metronidazole) 500 Mg Tablet, 500 MG PO TID for 5 Days, #15 TAB 0 Refills Prov:ELVIA GOULD AGACNP 09/17/18 Past Medical History Past Medical History: Cancer Medical History Other: GASTRITIS, COLON CA Past Surgical History: Cholecystectomy, Surgical History Other: ABD SX Family History Family History: Negative Social History Social History: ETOH, Lives with family Constitutional: (-) chills, (-) diaphoresis, (-) fever, (-) malaise, (-) weakness, (-) other documentation EENTM: (-) eye pain, (-) blurred vision, (-) tearing, (-) double vision, (-) ear pain, (-) ear discharge, (-) nose pain, (-) nose congestion, (-) throat pain, (-) Throat swelling, (-) mouth pain, (-) tooth pain, (-) mouth swelling, (-) other documentation Respiratory: (-) cough, (-) orthopnea, (-) short of breath, (-) stridor, (-) wheezing, (-) other documentation Cardiovascular: (-) chest pain, (-) edema, (-) palpitations, (-) syncope, (-) dyspnea on exertion, (-) other documentation Gastrointestinal/Abdominal: (+) nausea, (+) abdominal pain Genitourinary: (-) vaginal discharge, (-) vaginal bleeding, (-) dysuria, (-) frequency, (-) hematuria, (-) pain, (-) other documentation Musculoskeletal: (-) Neck pain, (-) back pain, (-) Flank Pain, (-) joint pain, (-) joint swelling, (-) muscle pain, (-) muscle stiffness, (-) gout, (-) other documentation Skin: (-) laceration, (-) contusion, (-) abrasion, (-) abscess, (-) rash, (-) change in color, (-) change in hair, (-) change in nails, (-) diaphoresis, (-) dryness, (-) other documentation Neuro: (-) altered mental status, (-) headache, (-) syncope, (-) paralysis, (-) numbness, (-) seizure, (-) pre-existing deficit, (-) tremors, (-) weakness, (-) dizziness, (-) slurred speech, (-) vertigo, (-) other documentation Physical Exam General Appearance: (+) moderate distress Orientation: (+) alert, (+) oriented x 3 Head/Face Trauma: No Eye: bilateral eye normal inspection, bilateral eye PERRL, bilateral eye EOMI Ear, Nose, Throat: (+) hearing grossly normal, (+) normal ENT inspection, (+) moist mucous membraine Neck: (+) normal inspection, (+) supple, (+) no JVD Respiratory: (+) chest non-tender, (+) well ventilated Heart: (+) regular, (+) no gallop, (+) tachycardia Vascular: (+) no edema, (+) normal peripheral pulse Gastrointestinal: (+) soft, (+) bowel sound present, (+) tender Results Laboratory and Microbiology Lab and Micro Result Laboratory Tests Test 02/22/25 22:19 White Blood Count 10.6 K/uL (4.8-10.8) Red Blood Count 4.48 MIL/uL (4.00-5.50) Hemoglobin 13.4 g/dL (12.0-16.0) Hematocrit 39.3 % (36-48) Mean Corpuscular Volume 87.7 fL (79-99) Mean Corpuscular Hemoglobin 29.9 pg (27.0-33.0) Mean Corpuscular Hemoglobin Concent 34.1 g/dL (32.0-36.0) Red Cell Distribution Width 12.3 % (11.0-15.5) Platelet Count 210 K/uL (130-400) Mean Platelet Volume 10.2 fL (7.5-10.5) Immature Granulocyte % (Auto) 0.3 % (0-1) Neutrophils (%) (Auto) 83.7 % (40.0-77.0) H Lymphocytes (%) (Auto) 10.7 % (21.0-51.0) L Monocytes (%) (Auto) 4.2 % (3.0-13.0) Eosinophils (%) (Auto) 0.6 % (0.0-8.0) Basophils (%) (Auto) 0.5 % (0.0-5.0) Neutrophils # (Auto) 8.9 K/uL (1.8-7.7) H Lymphocytes # (Auto) 1.1 K/uL (1.0-4.8) Monocytes # (Auto) 0.4 K/uL (0.1-1.0) Eosinophils # (Auto) 0.06 K/uL (0.00-0.70) Basophils # (Auto) 0.05 K/uL (0.00-0.20) Absolute Immature Granulocyte (auto 0.03 K/uL (0-1) Nucleated Red Blood Cells 0.0 % (0.0-0.19) Sodium Level 137 mmol/L (136-145) Potassium Level 3.6 mmol/L (3.5-5.1) Chloride Level 102 mmol/L (101-111) Carbon Dioxide Level 22 mmol/L (21-32) Blood Urea Nitrogen 13 mg/dL (7-18) Creatinine 0.9 mg/dL (0.5-1.0) Glomerular Filtration Rate Calc 80 mL/min (>90) Random Glucose 127 mg/dL (70-105) H Total Calcium 8.9 mg/dL (8.5-10.1) Total Bilirubin 0.9 mg/dL (0.2-1.0) Aspartate Amino Transf (AST/SGOT) 22 U/L (10-37) Alanine Aminotransferase (ALT/SGPT) 31 U/L (12-78) Alkaline Phosphatase 81 U/L (50-136) Total Protein 7.6 g/dL (6.0-8.3) Albumin 3.4 g/dL (3.5-5.0) L Serum Test, Qualitative NEGATIVE (NEGATIVE) MDM MDM: Differential diagnosis: Intra-abdominal pain: Splenic infarction, large bowel obstruction, small-bowel obstruction, renal colic, bowel perforation, hernia Rationale: Tests considered and ordered secondary to shared decision making include: Previous outside records reviewed: Old ER visits. Risk of complication and/or morbidity or mortality of patient management: None Medications-Per medication reconciliation Need for hospitalization: Patient does meet criteria for hospitalization. Need for emergency major/minor surgery: No There are no social concerns with this patient. Prescription drug management Prescriptions will include symptomatic care Patient's prior external medical records from other ER visits were reviewed by me as indicated. Prior testing and results from previous visits were reviewed. Prior tests were taken into account with medical decision making and resource utilization, independent historian/historians were used to obtain complete medical history. I independently interpreted the test that were performed, results were reviewed by me and considered findings on radiology if ordered. Patient's laboratory studies are negative. Her CBC is normal for a minimally elevated neutrophil cell count. Chemistry panel is likewise normal. CT scan has no abnormalities no ischemic changes no signs of obstruction. Patient does have a large bowel full of stool from the cecum to the rectum. It is possible patient's symptoms are from constipation. Patient is agreeable to go home on Bentyl and cathartics. Currently the patient is pain-free. ED Course Orders Procedure Category Date Status Time Hydromorphone 1 Mg PHA 02/22/25 In Process Inj (Dilaudid 1mg Inj 22:30 Lactated Ringers PHA 02/22/25 Complete 1000ml (Lactated 22:08 12 Lead Ekg Tracing- EKG 02/22/25 Logged Technical 22:08 Comprehensive LAB 02/22/25 Complete Metabolic Panel 22:08 Cbc With Differential LAB 02/22/25 Complete 22:08 ,Urine Test LAB 02/22/25 Logged 22:08 Urinalysis Profile LAB 02/22/25 Logged 22:08 Ct Abdomen/Pelvis CT 02/22/25 Resulted W/Wo Contras 22:08 Testing, LAB 02/22/25 Complete Serum Hcg 22:50 Hydromorphone 2mg PHA 02/22/25 Complete Vial (Dilaudid 2mg Inj 23:00 Iohexol (Omnipaque) PHA 02/22/25 Complete 23:08 Orphenadrine Citrate PHA 02/23/25 Complete (Norflex) 01:30 Ketorolac PHA 02/23/25 Complete Tromethamine 30mg/Ml 01:30 Current Medications Medications (Trade) Dose Ordered Sig/Saira Route PRN Reason Start Time Stop Time Status Last Admin Dose Admin Hydromorphone HCl (DiLAUDid 1MG INJ) 1 mg Q3H PRN IVP SEVERE PAIN (7-10) 02/22/25 22:30 02/27/25 22:29 02/22/25 22:22 Hydromorphone HCl (DiLAUDid 2MG INJ) 2 mg Q4H PRN IVP SEVERE PAIN (7-10) 02/22/25 23:00 02/22/25 22:58 DC Iohexol (Omnipaque) 75 ml STK-MED ONCE IV 02/22/25 23:08 02/22/25 23:08 DC Ketorolac Tromethamine (toRADol) 30 mg ONCE ONCE IVP 02/23/25 01:30 02/23/25 01:31 DC 02/23/25 01:25 Lactated Ringer's (Lactated Ringers 1000ml) 2,000 ml BOLUS STAT IV 02/22/25 22:08 02/22/25 22:13 DC 02/22/25 22:22 Orphenadrine Citrate (Norflex) 60 mg ONCE ONCE IVP 02/23/25 01:30 02/23/25 01:31 DC 02/23/25 01:24 Vital Signs Date Time Temp Pulse Resp B/P (MAP) Pulse Ox O2 Delivery O2 Flow Rate FiO2 02/22/25 22:23 98.8 91 20 142/65 99 Room Air* 0 21 02/22/25 22:05 99.1 97 20 121/81 97 Room Air 0 DX & DISP Disposition: Discharge Departure Impression: Primary Impression: Abdominal cramping in left flank Condition: Stable Scripts Magnesium Citrate (Magnesium Citrate) 296 Ml Solution 296 ML PO ONCE for 1 Day, #296 ML 0 Refills Prov: CHAD RODAS MD 02/23/25 Dicyclomine HCl (Bentyl) 10 Mg Cap 1 CAP PO Q6HPRN PRN for irritable bowel symptoms for 25 Days, #100 CAP 0 Refills Prov: CHAD RODAS MD 02/23/25 Additional Instructions: You came in with a extreme left upper quadrant pain. Our workup shows a normal chemistry panel and a normal analysis of your blood cells. A CT scan of your abdomen also showed no pathology. You do have a large stool load. It could be that your symptoms are from constipation and large bowels spasm. I have given you a prescription for Bentyl which will help with that. On order to help evacuate your bowel more efficiently I have written a prescription for magnesium citrate. You could also use GoLYTELY as an alternative. Please talk to your primary care doctor about other stool management medications and programs. Referrals: NONE (PCP) CHAD RODAS MD Feb 22, 2025 22:17
[2025-02-22] MEDS: LACTATED RINGERS 1000ML IV STA (22:22)
[2025-02-22 22:26] LABS: IMMATURE GRANULOCYTE ABSOLUTE 0.03 K/uL (0-1); NUCLEATED RED BLOOD CELLS 0.0 % (0.0-0.19); PLATELET COUNT (AUTO) 210 K/uL (130-400); RED BLOOD CELL COUNT(AUTO) 4.48 MIL/uL (4.00-5.50); RED CELL DISTRIBUTION WIDTH 12.3 % (11.0-15.5); WHITE BLOOD COUNT (AUTO) 10.6 K/uL (4.8-10.8)
[2025-02-22 22:38] LABS: CREATININE 0.9 mg/dL (0.5-1.0); GLOMERULAR FILTR. RATE CALC 80.0 mL/min (>90); GLUCOSE,RANDOM 127.0 mg/dL (70-105); SODIUM SERUM 137.0 mmol/L (136-145); UREA NITROGEN, BLOOD 13.0 mg/dL (7-18)
[2025-02-22 22:43] LABS: ASPARTATE AMINOTRANSFERASE 22.0 U/L (10-37); TOTAL PROTEIN, SERUM 7.6 g/dL (6.0-8.3)
[2025-02-22] MEDS ORDERED: IOHEXOL-350 75 ML VIAL IV ONE (23:08)
[2025-02-23] MEDS: ORPHENADRINE 60MG/2ML IVP ONE (01:24)
--- NOTE | 2025-02-23 02:15 | HMCIMG ---
EXAM: CT Abdomen and Pelvis without and with IV contrast CLINICAL HISTORY: Left lower quadrant pain. History of CA colon. TECHNIQUE: Pre and post-contrast thin collimated axial CT images of the abdomen and pelvis were obtained, with sagittal and coronal reformatted images also submitted. CT scan is done according to ALARA (As Low As Reasonably Achievable). COMPARISON: None. FINDINGS: Symmetrical dependent atelectasis in the bilateral posterior basal lungs. Mild fatty liver. Status post cholecystectomy. No focal abnormality within the pancreas, spleen, adrenals, or kidneys. No renal, ureteral, or bladder calculus. Unremarkable urinary bladder. Grossly unremarkable reproductive organs. 4.5 cm fat-containing umbilical hernia. No obstruction or strangulation. No obvious bowel wall thickening, dilatation, or obstruction. Unremarkable appendix. Uncomplicated colonic diverticula. Mild calcific atherosclerotic disease in the iliac vessels. No abdominal aortic aneurysm is evident. No pathological lymphadenopathy in the abdomen or pelvis. No ascites or pneumoperitoneum. No acute bony abnormality is evident. IMPRESSIONS: No acute process in the abdomen or pelvis. No abnormal bowel wall thickening or colonic mass is evident. Mild fatty liver. Uncomplicated umbilical hernia. Uncomplicated colonic diverticula. /Tristan
[2025-02-23] MEDS ORDERED: DICY10 PO (03:07)
[2025-02-23] MEDS ORDERED: MAGN296S73 PO (03:07)
[2025-02-23] MEDS: DICYCLOMINE HCL 10 MG/5 ML ML PO ONE (03:13)
[2025-02-23 03:20] VITALS: BP 110/60; PULSE 90; RESP 18; TEMP 98.5; O2SAT 97
--- NOTE | 2025-02-23 07:19 | EKG ---
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
== END 2025-02-23 03:28 | disposition home or self-care (01) ==
LOC: EDH 22:03
DX: R10.A2 Flank pain, left side (principal); R10.12 Left upper quadrant pain; E66.01 Morbid (severe) obesity due to excess calories; Z79.1 Long term (current) use of non-steroidal anti-inflammatories (NSAID); Z79.899 Other long term (current) drug therapy; Z90.49 Acquired absence of other specified parts of digestive tract; Z92.3 Personal history of irradiation
CPT/HCPCS: 99285; 74178; 96374; 80053; 84703; 85025; 36415; 93005; 96375; 96376; J7120; J1171; Q9967; J1885; J2405; J2360

== ENCOUNTER 2025-03-14 13:55 | Emergency (ER) | payer SELFPAY ==
[~2025-03-14] VITALS: Ht 167.6 cm; Wt 108.0 kg
[~2025-03-14 13:55] MED LIST changes: +DICY10 PO; +MAGN296S73 PO
[2025-03-14] MEDS ORDERED: ASPIRIN 325MG TAB PO ONE (14:00)
--- NOTE | 2025-03-14 14:04 | ERN ---
ED Note History of Present Illness Stated Complaint: SOB/ CHEST PAIN Chief Complaint: Shortness of Breath Time Seen by MD: 13:57 Time Seen by Midlevel: 13:58 Dictation: PATIENT IS A 44-YEAR-OLD FEMALE COMING IN TODAY WHO WAS IN THE TRIAGE ROOM WHEN SHE LAID DOWN ON THE FLOOR OF TRIAGE GO SHE WAS OUT OF BREATH. SHE DENIES ANY FALLS NO HEAD INJURIES. SHE SAID SHE WAS JUST TIRED AND LAID DOWN. SHE HAS A FATHER WITH HER AT THE BEDSIDE. SHE DOES STATE SHE HAS BEEN SHORT OF BREATH AND HAVING INTERMITTENT CHEST PAIN FOR A WEEK. NO NAUSEA VOMITING SHE DOES NOT HAVE A PRIMARY CARE DOCTOR. HISTORY OF CAD/ASTHMA COPD EMPHYSEMA OR FIBROSIS. HAS A HISTORY OF COLON CANCER Allergies: Coded Allergies: No Known Allergies (Unverified Allergy, Unknown, 09/16/18) onion (Unverified Allergy, Unknown, 05/18/19) Home Meds Active Scripts Magnesium Citrate (Magnesium Citrate) 296 Ml Solution, 296 ML PO ONCE for 1 Day, #296 ML 0 Refills Prov:CHAD RODAS MD 02/23/25 Dicyclomine HCl (Bentyl) 10 Mg Cap, 1 CAP PO Q6HPRN PRN for irritable bowel symptoms for 25 Days, #100 CAP 0 Refills Prov:CHAD RODAS MD 02/23/25 Ondansetron (Ondansetron Odt) 4 Mg Tab.rapdis, 4 MG PO Q6HPRN PRN for nausea, #12 TAB 0 Refills Prov:OLI KWOK MD 12/31/22 Loperamide HCl (Imodium) 2 Mg Cap, 2 MG PO TID PRN for DIARRHEA, #15 CAP 0 Refills Prov:OLIVIA BRICEÑO MD 04/30/22 Ondansetron (Ondansetron Odt) 4 Mg Tab.rapdis, 4 MG PO TID PRN for NAUSEA, #15 TAB 0 Refills Prov:OLIVIA BRICEÑO MD 04/30/22 Omeprazole Magnesium (Prilosec Otc) 20 Mg Tablet.dr, 20 MG PO DAILY, #30 TAB Prov:JACQUIE COLIN MD 01/24/22 Ibuprofen (Motrin/Advil) 800 Mg Tab, 800 MG PO TID, #30 TAB Prov:JACQUIE COLIN MD 01/24/22 Diphenhydramine HCl (Benadryl) 25 Mg Cap, 25 MG PO TID PRN for itching, #30 CAP Prov:JACQUIE COLIN MD 12/24/21 Hydrocortisone (Hydrocortisone 1% 28.35GM) 28.35 Gm Crm, 28.35 GM TP TID PRN for itching, #60 APPL Prov:JACQUIE COLIN MD 12/24/21 Levofloxacin (Levaquin) 500 Mg Tablet, 500 MG PO DAILY for 5 Days, #5 TAB 0 Refills Prov:ELVIA GOULD AGACNBright 09/17/18 Metronidazole (Metronidazole) 500 Mg Tablet, 500 MG PO TID for 5 Days, #15 TAB 0 Refills Prov:ELVIA GOULD AGACNP 09/17/18 Past Medical History Past Medical History: Cancer Additional Past Medical Hx: GASTRITIS, COLON CA Surgical History: Cholecystectomy, Surgical History Other: ABD SX Family History: Negative Social History: ETOH, Lives with family History: Not Applicable RN Note Reviewed/Agreed w/PFSH: Yes Review of System Dictation CONSTITUTIONAL: NEGATIVE EXCEPT FOR HPI HEAD/FACE: NEGATIVE EXCEPT FOR HPI EENT: NEGATIVE EXCEPT FOR HPI RESPIRATORY: NEGATIVE EXCEPT FOR HPI CHEST PAIN/SHORTNESS BREATH ONE WEEK GASTROINTESTINAL/ABDOMINAL: NEGATIVE EXCEPT FOR HPI GENITOURINARY: NEGATIVE EXCEPT FOR HPI MUSCULOSKELETAL: NEGATIVE EXCEPT FOR HPI INTEGUMENTARY: NEGATIVE EXCEPT FOR HPI NEUROLOGICAL/PSYCH: NEGATIVE EXCEPT FOR HPI HEMATOLOGIC/LYMPHATIC: NEGATIVE EXCEPT FOR HPI ALL SYSTEMS NEGATIVE, EXCEPT NOTED ABOVE. 13 POINT REVIEW OF SYSTEMS ASSESSED AND ALL NEGATIVE EXCEPT FOR ABOVE. Initial Vital Sign VS Vital Signs Date Time Temp Pulse Resp B/P (MAP) Pulse Ox O2 Delivery O2 Flow Rate FiO2 03/14/25 14:02 98.2 89 24 120/74 98 Room Air* 0 21 Physical Exam Dictation VITAL SIGNS REVIEWED GENERAL APPEARANCE: ALERT, ORIENTED X 3, MODERATE ACUTE DISTRESS, WELL D EVELOPED, NOURISHED. MORBID OBESITY HEAD AND FACE: NON-TRAUMATIC. EYES: PERRL, PINK CONJUNCTIVAS, EYELID NO TRAUMA, ANTERIOR CHAMBER WITH ARCUS SENILIS. EARS: PINNAS INTACT AND NO SIGNS OF TRAUMA OR ERYTHEMA EAR CANALS CLEAR AND NO DISCHARGE TM NO ERYTHEMA NOSE: NO DISCHARGE, NO BLEEDING. OROPHARYNX: MOUTH NORMAL, TONGUE PINK, PHARYNX CLEAR,NO ERYTHEMA, TONSILS NO EXUDATES, NO ABSCESSES NOTED, MUCOUS MEMBRANE MOIST NECK: SUPPLE, NON-TENDER, NO THYROMEGALY, NO MASSES, NO JVD, NO BRUITS BREAST:DEFERRED CHEST:NO TENDERNESS, NO CREPITUS, NO PARADOXICAL MOVEMENT, NO RETRACTIONS LUNGS: BILATERAL BREATH SOUNDS EXPIRATORY WHEEZING THROUGHOUT TO UPPER AND LOWER LOBES. MILD TACHYPNEA. NO RHONCHI HEART: REGULAR RATE, REGULAR RHYTHM, NO MURMUR, NO GALLOPS VASCULAR: NO PERIPHERAL EDEMA, ABDOMEN: SOFT, POSITIVE BOWEL SOUNDS, NONDISTENDED, NO GUARDING, NONTENDER, NO REBOUND, NO MASSES NO HEPATOMEGALY, NO SPLENOMEGALY, NO DEL CASTILLO'S SIGN, NO HERNIAS. RECTAL: DEFERRED GENITAL: DEFERRED NEUROLOGICAL: NORMAL SPEECH, MOTOR FUNCTION INTACT, SENSORY FUNCTION INTACT MUSCULOSKELETAL: NECK NONTENDER, FULL RANGE OF MOTION, BACK NONTENDER, FULL RANGE OF MOTION, EXTREMITIES: NONTENDER, FULL RANGE OF MOTION SKIN: COLOR PINK, DRY, NO TURGOR, NO RASH, NO LACERATIONS, NO ABRASIONS, NO CONTUSIONS. LYMPHATIC: DEFERRED Results (Laboratory/Radiology) Laboratory/Radiology Laboratory Tests Test 03/14/25 14:11 03/14/25 14:26 White Blood Count 5.7 K/uL (4.8-10.8) Red Blood Count 4.67 MIL/uL (4.00-5.50) Hemoglobin 13.9 g/dL (12.0-16.0) Hematocrit 42.1 % (36-48) Mean Corpuscular Volume 90.1 fL (79-99) Mean Corpuscular Hemoglobin 29.8 pg (27.0-33.0) Mean Corpuscular Hemoglobin Concent 33.0 g/dL (32.0-36.0) Red Cell Distribution Width 13.2 % (11.0-15.5) Platelet Count 189 K/uL (130-400) Mean Platelet Volume 10.6 fL (7.5-10.5) H Immature Granulocyte % (Auto) 0.4 % (0-1) Neutrophils (%) (Auto) 58.5 % (40.0-77.0) Lymphocytes (%) (Auto) 34.0 % (21.0-51.0) Monocytes (%) (Auto) 6.0 % (3.0-13.0) Eosinophils (%) (Auto) 0.7 % (0.0-8.0) Basophils (%) (Auto) 0.4 % (0.0-5.0) Neutrophils # (Auto) 3.3 K/uL (1.8-7.7) Lymphocytes # (Auto) 1.9 K/uL (1.0-4.8) Monocytes # (Auto) 0.3 K/uL (0.1-1.0) Eosinophils # (Auto) 0.04 K/uL (0.00-0.70) Basophils # (Auto) 0.02 K/uL (0.00-0.20) Absolute Immature Granulocyte (auto 0.02 K/uL (0-1) Nucleated Red Blood Cells 0.0 % (0.0-0.19) Sodium Level 140 mmol/L (136-145) Potassium Level 3.9 mmol/L (3.5-5.1) Chloride Level 103 mmol/L (101-111) Carbon Dioxide Level 28 mmol/L (21-32) Blood Urea Nitrogen 10 mg/dL (7-18) Creatinine 0.8 mg/dL (0.5-1.0) Glomerular Filtration Rate Calc 92 mL/min (>90) Random Glucose 99 mg/dL (70-105) Lactic Acid Level 2.3 mmol/L (0.8-2.5) Total Calcium 8.4 mg/dL (8.5-10.1) L Magnesium Level 1.80 mg/dL (1.80-2.40) Troponin I High Sensitivity < 4 ng/L (4-50) L B-Type Natriuretic Peptide < 5 pg/mL (0-100) SARS-CoV-2 Antigen (Rapid) PRESUMPTIVE NEGATIVE Labs Reviewed?: Yes EKG: (+) NSR EKG Comment: 1405/EKG NORMAL SINUS RHYTHM/HEART RATE 87/AXIS NORMAL/NO ECTOPY ED Course ED Course Orders Procedure Category Date Status Time Covid19 (Sars Antigen LAB 03/14/25 Complete Rapid) 13:59 B-Type Natriuretic LAB 03/14/25 Complete Peptide 13:59 Blood Cult LISBETH 03/14/25 Logged 13:59 Lactic Acid LAB 03/14/25 Complete 13:59 Cbc With Differential LAB 03/14/25 Complete 13:59 Chest 1vw RAD 03/14/25 Resulted 13:59 12 Lead Ekg Tracing- EKG 03/14/25 Complete Technical 13:59 Magnesium LAB 03/14/25 Complete 13:59 Troponin I High LAB 03/14/25 Complete Sensitivity 13:59 Aspirin 325mg Tab PHA 03/14/25 Complete (Aspirin 325mg Tab) 14:00 Basic Metabolic Panel LAB 03/14/25 Complete 13:59 Methylprednisolone PHA 03/14/25 Complete Succ 125mg (Solu-Medr 14:00 Albuterol 0.083% PHA 03/14/25 Complete 2.5mg/3ml (Proventil 14:00 Ketorolac PHA 03/14/25 Complete Tromethamine 30mg/Ml 14:30 Azithromycin PHA 03/14/25 Complete (Zithromax) 15:00 Current Medications Medications (Trade) Dose Ordered Sig/Saira Route PRN Reason Start Time Stop Time Status Last Admin Dose Admin Albuterol Sulfate (Proventil 0.083% 2.5mg/3ml) 5 mg ONCE ONCE IH 03/14/25 14:00 03/14/25 14:10 DC 03/14/25 14:55 Aspirin (Aspirin 325mg Tab) 325 mg ONCE ONCE PO 03/14/25 14:00 03/14/25 14:06 DC Azithromycin (Zithromax) 500 mg ONCE ONCE PO 03/14/25 15:00 03/14/25 15:01 DC Ketorolac Tromethamine (toRADol) 30 mg ONCE ONCE IVP 03/14/25 14:30 03/14/25 14:31 DC 03/14/25 14:32 Methylprednisolone Sodium Succinate (Solu-medROL 125MG) 125 mg ONCE ONCE IVP 03/14/25 14:00 03/14/25 14:10 DC 03/14/25 14:32 Vital Signs Date Time Temp Pulse Resp B/P (MAP) Pulse Ox O2 Delivery O2 Flow Rate FiO2 03/14/25 15:13 98.2 102 13 103/70 94 Room Air* 0 21 03/14/25 14:55 83 21 03/14/25 14:07 98.2 89 24 120/74 99 Room Air 0 03/14/25 14:02 98.2 89 24 120/74 98 Room Air* 0 21 1530/BILATERAL BREATH SOUNDS CLEAR TO AUSCULTATION SATURATING 98 HELP HER% ON ROOM AIR. VOICE IS CLEAR HEART Score Response (Comments) Value History: Low suspicion (0) 0 Age: 45-65yrs (+1) 1 Risk Factors: 1-2 risk factors (+1) 1 Initial Troponin: Normal limit (0) 0 Total 2 Medical Decision Making MDM MDM: DIFFERENTIAL DIAGNOSIS: PNEUMONIA/BRONCHITIS/ACS/AMI/SARS COVID/ELECTROLYTE IMBALANCE/DEHYDRATION/ASTHMA RATIONALE: TESTS CONSIDERED AND ORDERED SECONDARY TO SHARED DECISION MAKING INCLUDE: EKG/LABS/RADIOLOGY PREVIOUS OUTSIDE RECORDS REVIEWED: OLD ER VISITS. RISK OF COMPLICATION AND/OR MORBIDITY OR MORTALITY OF PATIENT MANAGEMENT: NONE MEDICATIONS-PER MEDICATION RECONCILIATION NEED FOR HOSPITALIZATION: PATIENT DOES NOT MEET CRITERIA FOR HOSPITALIZATION. NONE NEED FOR EMERGENCY MAJOR/MINOR SURGERY: NO THERE ARE NO SOCIAL CONCERNS WITH THIS PATIENT. PRESCRIPTION DRUG MANAGEMENT ALBUTEROL/MEDROL/AZITHROMYCIN PRESCRIPTIONS WILL INCLUDE SYMPTOMATIC CARE PATIENT'S PRIOR EXTERNAL MEDICAL RECORDS FROM OTHER ER VISITS WERE REVIEWED BY ME INDICATED. PRIOR TESTING AND RESULTS FROM PREVIOUS VISITS WERE REVIEWED. PRIOR TESTS WERE TAKEN INTO ACCOUNT WITH MEDICAL DECISION MAKING AND RESOURCE UTILIZATION, INDEPENDENT HISTORIAN/HISTORIANS WERE USED TO OBTAIN COMPLETE MEDICAL HISTORY. I INDEPENDENTLY INTERPRETED THE TEST THAT WERE PERFORMED, RESULTS WERE REVIEWED BY ME AND CONSIDERED FINDINGS ON RADIOLOGY IF ORDERED. MEDICAL MANAGEMENT AND EXAMINATION INTERPRETATION DISCUSSIONS WERE HAD BY ME WITH OTHER QUALIFIED HEALTHCARE PROFESSIONALS INDICATED FOR THE PATIENT'S CARE. DX & DISP Disposition: Discharge Departure Impression: Primary Impression: Bronchitis, acute, with bronchospasm Additional Impressions: Hypocalcemia, Atypical chest pain Condition: Stable Scripts Methylprednisolone (Medrol) 4 Mg Tab.ds.pk 1 TAB PO AD for 6 Days, #21 TAB 0 Refills 6 on day 1 then reduce by one tablet daily until gone Prov: MAHI NASH [employer] G[employer] DEALER 03/14/25 Albuterol Sulfate (Ventolin Hfa/Proventil Hfa/Proair Hfa) 90 Mcg Puff 2 PUFF IH Q4H for WHEEZING, #1 INHALER 0 Refills Prov: MAHI NASH [employer] DEALER 03/14/25 Azithromycin (Azithromycin) 250 Mg Tablet 1 TAB PO AD for 5 Days, #6 TAB 0 Refills 2 the first day followed by 1 for days 2-5 Prov: MAHI NASH [employer] G[employer] DEALER 03/14/25 Additional Instructions: FOLLOW-UP WITH PRIMARY CARE PROVIDER IN 1 TO 2 DAYS. TAKE MEDICATIONS DIRECTED HERE IN THE EMERGENCY ROOM. OKAY TO CONTINUE HOME MEDICATIONS UNLESS OTHERWISE DISCUSSED DURING YOUR VISIT IN THE EMERGENCY ROOM TODAY. RETURN TO YOUR NEAREST EMERGENCY ROOM IF SYMPTOMS WORSEN OR IF THERE IS NO IMPROVEMENT. CALL 911 IF YOU NEED IMMEDIATE ASSISTANCE. TAKE TYLENOL OR MOTRIN [id number] NEEDED AND IF NO CONTRAINDICATIONS ARE PRESENT. INCREASE ORAL HYDRATION. A WOUND CULTURE OR URINE CULTURE WAS ORDERED HERE IN THE EMERGENCY ROOM DEPARTMENT PLEASE FOLLOW-UP WITH PRIMARY CARE PROVIDER AND ADVISE THEM TO GET REPEAT PORTS FROM OUR FACILITY. IF YOU HAD ANY MIKE WRAP/SPLINTS THAT WERE APPLIED HERE, PLEASE DO NOT REMOVE THEM UNTIL YOU SEE YOUR PRIMARY CARE OR SPECIALTY. TAKE MEDROL DOSEPAK DIRECTED UNTIL GONE. USE ALBUTEROL INHALER EVERY 4 HOURS WHILE AWAKE FOR THE NEXT ONE DAY. TAKE AZITHROMYCIN DIRECTED STARTING TOMORROW UNTIL GONE. INCREASE YOUR WATER INTAKE. SEE YOUR PRIMARY CARE DOCTOR FOR FOLLOW UP IN 2-3 DAYS Referrals: SELF,REFERRAL (PCP) Time of Disposition: 15:31 I have reviewed the case, and I agree with, Diagnosis and Plan MAHI NASHP Mar 14, 2025 14:04
--- NOTE | 2025-03-14 14:17 | NUR ---
WALKED IN TO TRIAGE, MELISA TIRADO IN OFFICE WITH KALYANI AMAYA, PT WAS ON FLOOR FACE DOWN. PER MELISA CELESTINO STATED HE HAD PT SITTING IN CHAIR TAKING HER VITALS, PT SLID OF CHAIR ON TO FLOOR. PT WAS VERY ANXIOUS, PT PLACED ON STRETCHER TAKEN TO ROOM, PER FATHER STATED (SHES CRAZY). ASKED PT WHAT HAPPENED. PT STATED ( I THREW MYSELF ON TO THE FLOOR) I ASKED PT WHY PT STATED ( I WANTED TO LAY DOWN). PT DID NOT HIT HER HEAD NO LOC. PT STABLE IN ROOM. CHARGE NURSE SUNSHINE AMAYA AWARE. DR. BURKETT AWARE.
[2025-03-14 14:37] LABS: IMMATURE GRANULOCYTE ABSOLUTE 0.02 K/uL (0-1); NUCLEATED RED BLOOD CELLS 0.0 % (0.0-0.19); PLATELET COUNT (AUTO) 189 K/uL (130-400); RED BLOOD CELL COUNT(AUTO) 4.67 MIL/uL (4.00-5.50); RED CELL DISTRIBUTION WIDTH 13.2 % (11.0-15.5); WHITE BLOOD COUNT (AUTO) 5.7 K/uL (4.8-10.8)
[2025-03-14 14:49] LABS: CREATININE 0.8 mg/dL (0.5-1.0); GLOMERULAR FILTR. RATE CALC 92.0 mL/min (>90); GLUCOSE,RANDOM 99.0 mg/dL (70-105); SODIUM SERUM 140.0 mmol/L (136-145); UREA NITROGEN, BLOOD 10.0 mg/dL (7-18)
--- NOTE | 2025-03-14 14:54 | EKG ---
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
[2025-03-14 14:55] VITALS: PULSE 83; RESP 21
[2025-03-14] MEDS: ALBUTEROL 0.083% 2.5 MG/3 ML INH IH ONE (14:55)
[2025-03-14 15:13] VITALS: O2SAT 94
--- NOTE | 2025-03-14 15:16 | HMCIMG ---
EXAM: CR Chest, 1 View. CLINICAL HISTORY: HAS PAIN/SOB COMPARISON: None provided. FINDINGS: LUNGS: The lungs show no infiltrate or other acute finding. PLEURAL SPACES: No evidence of pleural effusion or pneumothorax. MEDIASTINUM: Cardiac size and mediastinal contours within normal limits. BONES: No acute osseous abnormality. IMPRESSION: No acute cardiopulmonary pathology is evident. /[place]
[2025-03-14] MEDS ORDERED: AZIT250T9 PO (15:32)
[2025-03-14] MEDS ORDERED: ALBUHFA IH (15:32)
[2025-03-14] MEDS ORDERED: METH4TAB3 PO (15:32)
[2025-03-14] MEDS: AZITHROMYCIN 250 MG TABLET PO ONE (15:51)
[2025-03-14 16:42] VITALS: BP 106/56; PULSE 93; RESP 14; TEMP 97.8
== END 2025-03-14 16:44 | disposition home or self-care (01) ==
LOC: EDH 13:55
DX: J20.9 Acute bronchitis, unspecified (principal); E83.51 Hypocalcemia; Z20.822 Contact with and (suspected) exposure to COVID-19; Z79.1 Long term (current) use of non-steroidal anti-inflammatories (NSAID); Z79.899 Other long term (current) drug therapy; Z85.038 Personal history of other malignant neoplasm of large intestine; Z87.19 Personal history of other diseases of the digestive system; Z90.49 Acquired absence of other specified parts of digestive tract
CPT/HCPCS: 99285; 96374; 71045; 96375; 87426; 83735; 84484; 80048; 83880; 85025; 87040 ×2; 83605; 36415; 93005; 94640; J1885; J2919